=== PATIENT | female | born 1980 | race Two or more races ===

== ENCOUNTER 2018-12-26 19:12 | Emergency (ER) | payer OTHER ==
[2018-12-26 19:23] VITALS: BP 125/66
[2018-12-26] MEDS ORDERED: KETOROLAC TROMETHAMINE INJ/PF 30 MG/1 ML SDV IV ONE (19:27)
[2018-12-26] MEDS ORDERED: NORMAL SALINE 1000 ML 1,000 ML IV ONE (19:28)
[2018-12-26] MEDS ORDERED: METOCLOPRAMIDE HCL INJ/PF 10 MG/2 ML SDV IV ONE (19:28)
[2018-12-26] MEDS ORDERED: DIPHENHYDRAMINE HCL 50 MG/ML VIAL IV ONE (19:28)
--- NOTE | 2018-12-26 19:31 | ER Document Report ---
ED Medical Screen (RME) - General Chief Complaint: Headache Stated Complaint: HEADACHE Time Seen by Provider: 12/26/18 19:27 TRAVEL OUTSIDE OF THE [place] IN LAST 30 DAYS: No - HPI Notes: 12/26/18 19:30 History of migraines headache on the right side 1 week different than her migraines in the past patient sees Dr. Wiggins for neurology has an injection that she takes once a month no other medications have been tried at home no nausea no vomiting no weakness. Patient is speaking only with translation being performed by family member at bedside. - Related Data Allergies/Adverse Reactions: No Known Allergies Allergy (Unverified 11/29/14 22:59) Past Medical History - Social History Frequency of alcohol use: None Drug Abuse: None Renal/ Medical History: Denies: Hx Peritoneal Dialysis - Immunizations Hx Diphtheria, Pertussis, Tetanus Vaccination: Yes Physical Exam - Vital signs Vitals: Temp Pulse Resp BP Pulse Ox 98.9 F 60 18 125/66 99 12/26/18 19:22 12/26/18 19:22 12/26/18 19:22 12/26/18 19:22 12/26/18 19:22 - Neurological Notes: Moving all 4 extremities with cranial nerves II through XII intact Course - Vital Signs Vital signs: Temp Pulse Resp BP Pulse Ox 98.9 F 60 18 125/66 99 12/26/18 19:22 12/26/18 19:22 12/26/18 19:22 12/26/18 19:22 12/26/18 19:22
--- NOTE | 2018-12-26 20:39 | ER Document Report ---
ED General - General Chief Complaint: Headache Stated Complaint: HEADACHE Time Seen by Provider: 12/26/18 19:27 Primary Care Provider: [facility] [Provider Group] - Follow up tomorrow Notes: Patient is a 38-year-old female who presents to the emergency department with a chief complaint of a headache. Her headache started about a week ago. It starts in her left temporal area and travels throughout her head and is a pulsing sensation. Associated symptoms include tingling. She states that this headache feels different than her normal migraines. She does state that she is also having teeth pain on tooth #17 and 18. She was seen by the dentist a month ago and a filling was placed, but she still continues to have pain in the area. At the time of my assessment, she states that the pain is gone but is worried that the pain may come back. She is also concerned that she may be . TRAVEL OUTSIDE OF THE [place] IN LAST 30 DAYS: No - Related Data Allergies/Adverse Reactions: No Known Allergies Allergy (Unverified 11/29/14 22:59) Past Medical History - Social History Smoking Status: Never Smoker Frequency of alcohol use: None Drug Abuse: None Family History: Reviewed & Not Pertinent Patient has suicidal ideation: No Patient has homicidal ideation: No Renal/ Medical History: Denies: Hx Peritoneal Dialysis - Immunizations Hx Diphtheria, Pertussis, Tetanus Vaccination: Yes Review of Systems - Review of Systems Notes: REVIEW OF SYSTEMS: CONSTITUTIONAL : Denies recent illness. Denies recent unintentional weight loss. Denies fever, chills, or sweats. EENT: See HPI. CARDIOVASCULAR: Denies chest pain. RESPIRATORY: Denies shortness of breath, cough, congestion, difficulty breathing, or wheezing. GASTROINTESTINAL: Denies nausea, vomiting, and diarrhea. Denies abdominal pain. Denies constipation. GENITOURINARY: Denies difficulty urinating, burning, blood in urine, urgency or frequency. MUSCULOSKELETAL: Denies neck and back pain. Denies joint pain or swelling. SKIN: Denies rash, itchiness, or lesions HEMATOLOGIC : Denies easy bruising or bleeding. LYMPHATIC: Denies swollen, painful, enlarged glands. NEUROLOGICAL: See HPI. PSYCHIATRIC: Denies stress, anxiety, alteration in sleep patterns, or depression. All other systems reviewed and negative. Physical Exam - Vital signs Vitals: Temp Pulse Resp BP Pulse Ox 98.9 F 60 18 125/66 99 12/26/ 19:22 12/26/18 19:22 12/26/18 19:22 12/26/18 19:22 12/26/18 19:22 - Notes Notes: PHYSICAL EXAMINATION: GENERAL: Appears well, healthy, well-nourished, no acute distress. HEAD: Normocephalic, atraumatic. EYES: PERRL, conjunctiva normal, all extraocular movements intact, sclera non icteric ENT: Moist mucous membranes. Dental caries noted to tooth #17 and 18. NECK: Supple, no noticeable swelling, redness, rash. Normal range of motion. LUNGS: Equal breath sounds bilaterally and clear to auscultation. No wheezes rales or rhonchi. CARDIOVASCULAR: S1-S2, regular rate, regular rhythm. Radial pulses 2+, normal. ABDOMEN: Normoactive bowel sounds. Soft, nontender, no guarding, no rebound tenderness, and no masses palpated. EXTREMITIES: Normal strength and range of motion, no pitting or edema. No cyanosis. NEUROLOGICAL: Moves all extremities upon command. Strength 5/5 in all extremities. PSYCH: Normal mood, normal affect. SKIN: Warm, dry. No rash, lesions, ulcerations noted. Normal skin turgor. Course - Re-evaluation Re-evalutation: 12/26/18 20:42 Patient's test is negative. I am suspicious of her toothache causing her migraine. I do not suspect she has intracranial hemorrhage, and acute stroke, or any other life-threatening etiology at this time. Patient is strong and is able to move all extremities on command. She had complete resolution of her headache after receiving a migraine cocktail. I have discussed with the patient and her the importance of following up with a neurologist and the dentist in regards to her visit here in the emergency department. Verbal discharge instructions were given to the patient. They verbalized understanding. They are stable for discharge. Documentation was completed using voice recognition software, therefore there may be some unintended grammatical or punctual errors. - Vital Signs Vital signs: Temp Pulse Resp BP Pulse Ox 98.9 F 60 18 125/66 99 12/26/18 19:22 12/26/18 19:22 12/26/18 19:22 12/26/18 19:22 12/26/18 19:22 Discharge - Discharge Clinical Impression: Toothache Migraine Qualifiers: Migraine type: unspecified Status migrainosus presence: without status migrainosus Intractability: not intractable Qualified Code(s): G43.909 - Migraine, unspecified, not intractable, without status migrainosus Disposition: HOME, SELF-CARE Instructions: Use of Diphenhydramine, Headache ([facility]), Penicillin V K ([facility]), Toothache ([facility]) Additional Instructions: You have been seen in the Emergency Department (ED) for a headache. Please use Tylenol (acetaminophen) 1000 mg or Motrin (ibuprofen) 600 mg every 6 hours as needed for pain. As we have discussed, please follow up with your neurologist doctor as soon as possible regarding today's ED visit and your headache symptoms. You may also take Benadryl (diphenhydramine) 50 mg and make sure you sleep shortly after taking this medication with the acetaminophen and ibuprofen. Please follow-up with the dentist this week in regards to your visit. You have been given antibiotics for your tooth pain. Please take all medication as prescribed. Finish all your medication. Call your doctor or return to the ED if you have a worsening headache, sudden and severe headache, confusion, slurred speech, facial droop, weakness or numbness in any arm or leg, extreme fatigue, or other symptoms that concern you. Prescriptions: Penicillin V Potassium [Penicillin Vk 500 mg Tablet] 500 mg PO BID 7 Days #20 tablet Referrals: [facility] [Provider Group] - Follow up tomorrow
[2018-12-26] MEDS ORDERED: LIDOCAINE 2% VISCOUS SOLN 20 ML UDCUP PO ONE (20:50)
[2018-12-26] MEDS ORDERED: PENICILLIN V POTASSIUM 500 MG TABLET PO ONE (20:50)
== END 2018-12-26 21:02 | disposition home or self-care (01) ==
LOC: ER 19:12
DX: K08.9 Disorder of teeth and supporting structures, unspecified (principal); G43.909 Migraine, unspecified, not intractable, without status migrainosus
CPT/HCPCS: 99284; 96361; 96374; 96375; 36415; 84703; J1200; J3490; J1885; J2765; J7030

== ENCOUNTER 2019-02-22 03:02 | Emergency (ER) | payer OTHER ==
[2019-02-22] MEDS ORDERED: ONDANSETRON HCL INJ/PF 4 MG/2 ML SDV IV ONE (04:02)
[2019-02-22] MEDS ORDERED: FENTANYL CITRATE INJ/PF 100 MCG/2 ML AMPUL IV ONE ×2 (04:03→07:16)
[2019-02-22 05:11] LABS: ABSOLUTE BASOPHILS # (AUTO) 0.1 10^3/uL (0.0-0.2); ABSOLUTE EOSINOPHILS # (AUTO) 1.9 10^3/uL (0.0-0.6); ABSOLUTE LYMPHOCYTES (AUTO) 1.5 10^3/uL (0.5-4.7); ABSOLUTE MONOCYTES (AUTO) 1.1 10^3/uL (0.1-1.4); ABSOLUTE NEUT (AUTO) 8.7 10^3/uL (1.7-8.2); BASOPHILS % (AUTO) 0.4 % (0-2); HEMATOCRIT 40.3 % (36.0-47.0); HEMOGLOBIN 13.4 g/dL (12.0-15.5); LYMPHOCYTES % (AUTO) 11.3 % (13-45); MEAN CORPUSCULAR HEMOGLOBIN 30.1 pg (27.0-33.4); MEAN CORPUSCULAR HGB CONC 33.3 g/dL (32.0-36.0); MEAN CORPUSCULAR VOLUME 91 fl (80-97); MONOCYTES % (AUTO) 8.4 % (3-13); PLATELET COUNT 184 10^3/uL (150-450); RED BLOOD COUNT 4.45 10^6/uL (3.72-5.28); SEGMENTED NEUTROPHILS % (AUTO) 65.9 % (42-78); TOTAL CELLS COUNTED % (AUTO) 100 %; WHITE BLOOD COUNT 13.3 10^3/uL (4.0-10.5)
[2019-02-22 05:32] LABS: ALANINE AMINOTRANSFERASE 27 U/L (9-52); ALBUMIN 4.3 g/dL (3.5-5.0); ALKALINE PHOSPHATASE 63 U/L (38-126); ANION GAP 7 (5-19); ASPARTATE AMINO TRANSFERASE 24 U/L (14-36); BILIRUBIN,DIRECT 0.2 mg/dL (0.0-0.4); BILIRUBIN,TOTAL 0.7 mg/dL (0.2-1.3); BLOOD UREA NITROGEN 12 mg/dL (7-20); CALCIUM 9.3 mg/dL (8.4-10.2); CARBON DIOXIDE 25 mmol/L (22-30); CHLORIDE 109 mmol/L (98-107); GLUCOSE 103 mg/dL (75-110); LIPASE 64.1 U/L (23-300); POTASSIUM 3.8 mmol/L (3.6-5.0); SODIUM 140.9 mmol/L (137-145); TOTAL PROTEIN 7.8 g/dL (6.3-8.2)
[2019-02-22 06:09] LABS: APPEARANCE,URINE CLEAR; BILIRUBIN,URINE NEGATIVE (NEGATIVE); COLOR,URINE STRAW; GLUCOSE, URINE NEGATIVE (NEGATIVE); KETONES,URINE NEGATIVE (NEGATIVE); LEUKOCYTE ESTERASE,URINE NEGATIVE (NEGATIVE); NITRITE,URINE NEGATIVE (NEGATIVE); PROTEIN,URINE NEGATIVE (NEGATIVE); URINE SPECIFIC GRAVITY 1.005; UROBILINOGEN,URINE NEGATIVE mg/dL (<2.0)
--- NOTE | 2019-02-22 06:54 | RADIOLOGY REPORT (SQ) ---
EXAM DESCRIPTION: CT ABDOMEN PELVIS WITH IV CONTRAST COMPLETED DATE/TME: 02/22/2019 00:00 CLINICAL HISTORY: 39 years, Female, BL lower abd pain Comparison: None TECHNIQUE: Contiguous axial CT images of the abdomen and pelvis were obtained. Sagittal and coronal reformats were reviewed. This exam was performed according to our departmental dose-optimization program, which includes automated exposure control, adjustment of the mA and/or kV according to patient size and/or use of iterative reconstruction technique. FINDINGS: Lung bases: Clear. Liver:Unremarkable. No focal liver lesion. Gallbladder:Unremarkable. No gallstones. No gallbladder wall thickening or pericholecystic fluid. Spleen:Unremarkable Pancreas: Pancreas is unremarkable. Adrenal glands: Coarse calcifications are noted in the right adrenal gland probably related to sequelae from prior hemorrhage or infection. The left adrenal gland is normal in appearance. Kidneys/ureters:Within normal limits Stomach/small bowel/colon: Stomach is unremarkable. Small bowel is unremarkable. Colon is unremarkable. Appendix: Appendix not seen with certainty. However, no inflammatory changes or fluid seen in the pericecal region and right lower quadrant. Peritoneum: No free fluid. Vascular structures: within normal limits Lymph nodes: No abnormal lymph nodes. Bladder:Unremarkable. Pelvic organs: There is a 4.4 cm left ovarian cyst. Bones: No acute osseous abnormality. Soft tissues: Unremarkable.. IMPRESSION: 4.4 cm benign appearing ovarian cyst. No follow-up imaging is recommended. Reference: J Am Nely Radiol 2013;10:675-681
--- NOTE | 2019-02-22 07:41 | ER Document Report ---
ED General - General TRAVEL OUTSIDE OF THE [place] IN LAST 30 DAYS: No <ALBERT SANCHEZ - Last Filed: 02/22/19 08:03> <IFEANYI GUAN - Last Filed: 02/22/19 09:45> <PRESLEY BAÑUELOS Magali - Last Filed: 02/23/19 06:09> - General Chief Complaint: Abdominal Pain Stated Complaint: ABDOMINAL PAIN Time Seen by Provider: 02/22/19 04:22 Primary Care Provider: SHERIN DICKSON MD [ACTIVE STAFF] - Follow up tomorrow (call for an appt today for or Thursday per Dr. Dickson for follow-up) DANA MEHTA MD [Primary Care Provider] - Follow up in 3-5 days Notes: Patient is a 39-year-old female presents to the emergency department for left lower abdominal pain. Patient states she has had this left lower abdominal pain intermittently for the last couple weeks. Today it was intense and associated with vomiting. Patient's denying any fever, diarrhea. Patient is also denying dysuria, vaginal discharge to include bleeding Past medical history: None Medications: None Allergies: None Surgical history: None (ALBERT SANCHEZ) - Related Data Allergies/Adverse Reactions: No Known Allergies Allergy (Verified 02/22/19 03:04) Past Medical History - General Information source: Patient, Relative - Social History Smoking Status: Never Smoker Chew tobacco use (# tins/day): No Frequency of alcohol use: None Drug Abuse: None Family History: Reviewed & Not Pertinent Patient has suicidal ideation: No Patient has homicidal ideation: No Renal/ Medical History: Denies: Hx Peritoneal Dialysis - Immunizations Hx Diphtheria, Pertussis, Tetanus Vaccination: Yes <ALBERT SANCHEZ - Last Filed: 02/22/19 08:03> Review of Systems - Review of Systems Constitutional: See HPI EENT: No symptoms reported Cardiovascular: No symptoms reported Respiratory: No symptoms reported Gastrointestinal: See HPI Genitourinary: See HPI Female Genitourinary: See HPI Musculoskeletal: No symptoms reported Skin: No symptoms reported Hematologic/Lymphatic: No symptoms reported Neurological/Psychological: No symptoms reported <ALBERT SANCHEZ - Last Filed: 02/22/19 08:03> Physical Exam <ALBERT SANCHEZ - Last Filed: 02/22/19 08:03> - Vital signs Vitals: Temp Pulse Resp BP Pulse Ox 98.5 F 81 16 115/66 99 02/22/19 03:06 02/22/19 03:06 02/22/19 03:06 02/22/19 03:06 02/22/19 03:06 - Notes Notes: GENERAL: Alert, interacts well. No acute distress. HEAD: Normocephalic, atraumatic. EYES: Pupils equal, round, and reactive to light. Extraocular movements intact. ENT: Oral mucosa moist, tongue midline. NECK: Full range of motion. Supple. Trachea midline. LUNGS: Clear to auscultation bilaterally, no wheezes, rales, or rhonchi. No respiratory distress. HEART: Regular rate and rhythm. No murmur ABDOMEN: Soft, Non-distended. Bowel sounds present in all 4 quadrants. Generalized left lower quadrant and left pelvic pain, no McBurney's point tenderness, no Dean sign noted. EXTREMITIES: Moves all 4 extremities spontaneously. No edema, normal radial and dorsalis pedis pulses bilaterally. No cyanosis. BACK: no cervical, thoracic, lumbar midline tenderness. No saddle anesthesia, normal distal neurovascular exam. No CVA tenderness noted bilaterally. NEUROLOGICAL: Alert and oriented x3. Normal speech. cranial nerves II through XII grossly intact PSYCH: Normal affect, normal mood. SKIN: Warm, dry, normal turgor. No rashes or lesions noted. (ALBERT SANCHEZ) Course - Laboratory Result Diagrams: 02/22/19 04:59 02/22/19 04:59 <ALBERT SANCHEZ - Last Filed: 02/22/19 08:03> - Laboratory Result Diagrams: 02/22/19 04:59 02/22/19 04:59 <IFEANYI GUAN A - Last Filed: 02/22/19 09:45> - Laboratory Result Diagrams: 02/22/19 04:59 02/22/19 04:59 <PRESLEY BAÑUELOS A - Last Filed: 02/23/19 06:09> - Re-evaluation Re-evalutation: CT imaging ordered due to patient's increased tenderness in the left lower quadrant. Patient does have a leukocytosis of 13.3, no signs of anemia, no signs of urinary tract infection. CT imaging shows a 4.4 cm left ovarian cyst. Upon reexamination of patient's abdomen after pain medication and antiemetics patient continues with significant left lower quadrant and pelvic pain. Discussed ultrasound to rule out torsion due to ovarian cyst. 02/22/19 08:03 Patient care and report transferred to [facility] for ultrasound results. (ALBERT SANCHEZ) disposition from [facility]. Awaiting for transvaginal ultrasound with Doppler. Transvaginal ultrasound does show that there is normal arterial vascular flow without evidence of torsion to the left and the right ovary. Noted a complex appearing mass to the left ovary with internal septations there is no blood flow to the ovarian mass measuring 4 x 3 x 3 cm, consider hemorrhagic cyst or possible endometrioma. with Dr. Sherin Dickson, [facility] on- call at 09:20, to discuss pertinent clinical, diagnostic and laboratory finding s, felt that this patient could be seen outpatient in her office in approximately 2 to 3 days, will need a repeat ultrasound in a few weeks possible surgery to remove the cyst. Discussed with patient and these findings. All questions and concerns answered by this provider. Pain is been reduced down to a 2 out of 10 on reevaluation. Discussed with patient to apply heat 20 minutes on 20 minutes off several times a day to area, alternate between Tylenol and ibuprofen. Patient has remained afebrile vitals stable no distress throughout duration of stay in the emergency room. After performing a Medical Screening Examination, I estimate there is LOW risk for ACUTE APPENDICITIS, BOWEL OBSTRUCTION, ACUTE CHOLECYSTITIS, PERFORATED DIVERTICULITIS, INCARCERATED HERNIA, PANCREATITIS, PELVIC INFLAMMATORY DISEASE, PERFORATED ULCER, ECTOPIC , or TUBO-OVARIAN ABSCESS, thus I consider the discharge disposition reasonable. Also, there is no evidence or peritonitis, sepsis, or toxicity. I have reevaluated this patient multiple times and no significant life threatening changes are noted. The patient and I have discussed the diagnosis and risks, and we agree with discharging home with close follow-up with the understanding that symptoms and presentations can change. We also discussed returning to the Emergency Department immediately if new or worsening symptoms occur. We have discussed the symptoms which are most concerning (e.g., bloody stool, fever, changing or worsening pain, vomiting) that necessitate immediate return. 02/22/19 09:55 (IFEANYI GUAN) 02/22/19 Patient was seen and evaluated by myself. I agree with [facility] evaluation and dispo sition. Patient was in no acute distress on my exam. She was walking around the exam room and stated her pain was almost completely resolved. Her imaging did show hemorrhagic cyst. Patient has an appointment set up with [facility] for close outpatient follow-up. All questions were answered. She was in agreement with plan of care and stable at discharge (PRESLEY BAÑUELOS) - Vital Signs Vital signs: Temp Pulse Resp BP Pulse Ox 98.3 F 75 18 106/52 L 100 02/22/19 10:08 02/22/19 10:09 02/22/19 10:08 02/22/19 10:09 02/22/19 10:09 - Laboratory Laboratory results interpreted by me: 02/22/19 02/22/19 02/22/19 04:59 04:59 05:50 WBC 13.3 H Lymphocytes % 11.3 L Eosinophils % 14.0 H Absolute Neutrophils 8.7 H Absolute Eosinophils 1.9 H Chloride 109 H Urine Blood MODERATE H Discharge <ALBERT SANCHEZ - Last Filed: 02/22/19 08:03> <IFEANYI GUAN - Last Filed: 02/22/19 09:45> <PRESLEY BAÑUELOS - Last Filed: 02/23/19 06:09> - Discharge Clinical Impression: Ovarian cyst Condition: Stable Disposition: HOME, SELF-CARE Instructions: Ovarian Cyst ([facility]) Additional Instructions: Ovarian Cyst Your examination shows the presence of an ovarian cyst. This is a ball of fluid attached to the ovary. Ovarian cysts in women of child-bearing age are usually innocent. However, the cyst may cause pain when it grows or bursts. An innocent ovarian cyst will usually go away by itself. When the cyst becomes painful, you should rest. Pain medication may be required. Some women find a hot water bottle soothing. The pain usually re solves within one or two days. After menopause, an ovarian cyst may mean a tumor, and requires more aggressive evaluation -- usually surgery is recommended to remove or biopsy the cyst. A very large cyst requires evaluation at any age. Most cysts (even the innocent ones) require follow-up examination. Call the doctor or return at any time if the pain increases significantly, if you become faint, or if you experience vaginal bleeding. Follow-up with Dr. Dickson's office on or Thursday for reevaluation. Apply heat 20 minutes on 20 minutes off several times a day, alternate between Tylenol and ibuprofen. Increase oral hydration. Return immediately for any new or worsening symptoms. Follow up with primary care provider, call tomorrow to make followup appointment. Forms: Return to Work Referrals: SHERIN DICKSON MD [ACTIVE STAFF] - Follow up tomorrow (call for an appt today for or Thursday per Dr. Dickson for follow-up) DANA MEHTA MD [Primary Care Provider] - Follow up in 3-5 days
--- NOTE | 2019-02-22 08:46 | RADIOLOGY REPORT (SQ) ---
EXAM DESCRIPTION: U/S NON OB PEL TV W/DOPPLER COMPLETED DATE/TIME: 02/22/2019 8:22 am REASON FOR STUDY: left cyst +pain looking for blood flow COMPARISON: None. TECHNIQUE: Dynamic and static grayscale images acquired of the pelvis via transvaginal approach and recorded on PACS. Additional selected color Doppler and spectral images recorded. LIMITATIONS: None. FINDINGS: UTERUS: Contour normal. No mass. ENDOMETRIAL STRIPE: No focal or generalized thickening. No masses. CERVIX: No nabothian cysts. RIGHT OVARY AND DOPPLER: Normal size. No worrisome masses. Normal arterial vascular flow without evid ence for torsion. LEFT OVARY AND DOPPLER: Normal arterial vascular flow without evidence for torsion. A complex heter ogenous appearing mass in the left ovary with internal septations measures 4.4 x 3.6 x 3.3 cm. No bl ood flow is demonstrated within the ovarian mass. FREE FLUID: A trace of free fluid in the posterior cul-de-sac. OTHER: No other significant finding. MEASUREMENTS: UTERUS: 9.2 x 5.4 x 4.7 cm ENDOMETRIAL STRIPE: 8.7 mm RIGHT OVARY: 2.7 x 1.8 x 2.2 cm LEFT OVARY: 5.0 x 4.0 x 4.0 cm. IMPRESSION: 1. A complex heterogenous left ovarian mass with internal septations as detailed above. Considerations for this finding includes hemorrhagic cyst, possible endometrioma. Correlation molly bishop. Please see comments below. 2. Trace of free fluid in the cul-de-sac. COMMENT: Followup of asymptomatic indeterminate ovarian cysts detected by ultrasound in PREMENOPAUS [place] patients Cyst with findings suggestive of, but not classic for, hemorrhagic cyst, endometrioma or dermoid: *6-12 week followup US; if not a resolving hemorrhagic cyst, continued US or MRI followup; if endomet rioma or dermoid still not confirmed, consider surgical consultation Single thin septation or focal wall calcification: *Same as for benign cyst, based on size Multiple septations: *Consider surgical consultation Nodule in a cyst: *No blood flow in nodule: MRI or surgical consultation *Blood flow in nodule: surgical consultation Note: If cyst is clinically symptomatic or otherwise concerning, other followup may be warranted. Based on recommendations of the Society for Radiologists in Ultrasound Consensus Conference Statement 2010 on management of asymptomatic ovarian and other adnexal cysts imaged at ultrasound. TECHNICAL DOCUMENTATION: JOB ID: [id number] [employer]- All Rights Reserved Rev-04/09 Reading location - IP/workstation name: [email or web address]
[2019-02-22 10:15] VITALS: BP 106/52
== END 2019-02-22 10:16 | disposition home or self-care (01) ==
LOC: ER 03:02
DX: N83.202 Unspecified ovarian cyst, left side (principal); R10.9 Unspecified abdominal pain; R10.32 Left lower quadrant pain; R11.10 Vomiting, unspecified
CPT/HCPCS: 96376; 99284; 96374; 96375; 36415; 83690; 85025; 81025; 80053; 81001; 76830; 93976; 74177; J3010; J2405